=== PATIENT | male | born 1960 | race Hispanic/Latino ===

== ENCOUNTER 2018-06-07 11:30 | Observation (INO) | payer OTHER ==
[~2018-06-07] VITALS: Ht 167.6 cm; Wt 106.6 kg
[2018-06-07] MEDS ORDERED: ASPIRIN 81 MG CHEW TAB PO ONE (12:00)
[2018-06-07 12:27] LABS: BASOPHILS % 0.4 % (0.0-1.0); EOSINOPHILS # (AUTO) 0.1 (0.0-0.4); EOSINOPHILS % 1.5 % (0.0-6.0); HEMATOCRIT 45.1 % (38.2-49.6); HEMOGLOBIN 15.2 g/dL (14.0-18.0); LYMPHOCYTES # (AUTO) 1.9 (1.0-3.2); LYMPHOCYTES % 26.4 % (18.0-39.1); MEAN CORPUSCULAR HEMOGLOBIN 29.1 pg (28-32); MEAN CORPUSCULAR HGB CONC 33.7 g/dL (31-35); MEAN CORPUSCULAR VOLUME 86.2 fL (81-99); MONOCYTES # (AUTO) 0.5 (0.2-0.8); MONOCYTES % 6.6 % (4.4-11.3); NEUTROPHILS # (AUTO) 4.7 (2.1-6.9); NEUTROPHILS % 64.8 % (38.7-80.0); PLATELET COUNT 123 x10e3/uL (140-360); RED BLOOD COUNT 5.23 x10e6/uL (4.3-5.7); RED CELL DISTRIBUTION WIDTH 14.1 % (11.7-14.4)
[2018-06-07 12:44] LABS: ALANINE AMINOTRANSFERASE 41 IU/L (0-55); ALBUMIN 4.1 g/dL (3.5-5.0); ALBUMIN/GLOBULIN RATIO 1.6 (0.8-2.0); ALKALINE PHOSPHATASE 54 IU/L (40-150); ANION GAP 13.3 mmol/L (8-16); BLOOD UREA NITROGEN 12 mg/dL (7-26); BUN/CREATININE RATIO 16 (6-25); CALCIUM 9.6 mg/dL (8.4-10.2); CARBON DIOXIDE 27 mmol/L (22-29); CHLORIDE 101 mmol/L (98-107); CREATINE KINASE 85 IU/L (30-200); CREATININE, SERUM 0.77 mg/dL (0.72-1.25); EST GLOMERULAR FILTRATION RATE > 60 ML/MIN (60-); GLUCOSE 109 mg/dL (74-118); LIPASE 20 U/L (8-78); POTASSIUM 4.3 mmol/L (3.5-5.1); SODIUM 137 mmol/L (136-145)
[2018-06-07] MEDS ORDERED: ONDANSETRON HCL INJ 2 MG/ML VIAL IV PRN ×2 (12:45→13:15)
[2018-06-07] MEDS ORDERED: FAMOTIDINE 20 MG/2 ML VIAL IV ONE (12:45)
[2018-06-07] MEDS ORDERED: METOPROLOL TARTRATE INJ 1 MG/ML VIAL IV SCH (12:45)
[2018-06-07] MEDS ORDERED: NITROGLYCERIN 2% OINT 1 GM PKT TOP ONE (12:45)
--- NOTE | 2018-06-07 12:58 | Diagnostic Imaging Report ---
EXAM: XR CHEST 1 VIEW DATE: 06/07/2018 11:48 AM INDICATION: Irregular heartbeat COMPARISON: None FINDINGS: Lines and Tubes: None Heart and Mediastinum: Heart borderline enlarged, possibly due to portable technique. Lungs and Pleura: No significant pleural effusion, pneumothorax, or focal consolidation. Bones and Soft Tissues: No acute findings. IMPRESSION: 1. No acute cardiopulmonary findings. Signed by: Dr. Andrés Rizo MD on 06/07/2018 12:55 PM
[2018-06-07 13:08] LABS: INR 0.87; PROTHROMBIN TIME 12.7 seconds (11.9-14.5)
[2018-06-07 13:09] LABS: PARTIAL THROMBOPLASTIN TIME 27.9 seconds (23.8-35.5)
[2018-06-07] MEDS ORDERED: FAMOTIDINE 20 MG TAB PO SCH (13:15)
[2018-06-07] MEDS ORDERED: SODIUM CHLORIDE FLUSH 10 ML SYR INJ PRN (13:15)
[2018-06-07] MEDS ORDERED: HYDROMORPHONE 2MG/ML 2 MG/ML ML IV PRN ×2 (13:15→15:30)
[2018-06-07] MEDS: METOPROLOL TARTRATE 25 MG TAB PO SCH (13:24)
--- OUTSIDE RECORDS SUMMARY | 2018-06-07 14:23 | XMS REPORT ---
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 Allergies, Adverse Reactions, Alerts This patient has no known allergies or adverse reactions. Medications This patient has no known medications. Results Test Description Test Time Test Comments Text Results Atomic Results Result Comments CHEST SINGLE (PORTABLE) 2018-06-07 12:53:00 [place] [id number] Patient Name: SHERYL LAZO MR #: [id number] : 1960 Age/Sex: 57/M Req #: [id number] Adm Physician: Ordered by: MICHELLE BARTLETT RECHECKER Report #: [id number] Location: ER Room/Bed: Procedure: [id number] DX/CHEST SINGLE (PORTABLE) Exam Date: Exam Time: REPORT STATUS: Signed EXAM: XR CHEST 1 VIEW DATE: 06/07/2018 11:48 AM NATAN CATION: Irregular heartbeat COMPARISON: None FINDINGS: Lines and Tubes: None Heart and Mediastinum: Heart borderline enlarged, possibly due to portable technique. Lungs and Pleura: No significant pleural effusion, pneumothorax, or focal consolidation. Bones and Soft Tissues: No acute findings. IMPRESSION: 1. No acute cardiopulmonary findings. Signed by: Dr. Andrés Rizo MD on 06/07/2018 12:55 PM Dictated By: ANDRÉS RIZO MD 55 Transcribed By: KEYANNA on 06/07/181254 COPY TO: MICHELLE BARTLETT NP
[2018-06-07 14:59] LABS: CLARITY,URINE CLEAR (CLEAR); COLOR,URINE YELLOW (YELLOW); LEUKOCYTE ESTERASE ,URINE NEGATIVE (NEGATIVE); NITRITE,URINE NEGATIVE (NEGATIVE); PROTEIN,URINE DIPSTICK NEGATIVE (NEGATIVE)
[2018-06-07 15:00] LABS: BILIRUBIN,URINE NEGATIVE (NEGATIVE); KETONES,URINE NEGATIVE (NEGATIVE); URINE UROBILINOGEN 0.2 mg/dL (0.2 - 1)
[2018-06-07] MEDS ORDERED: ENALAPRILAT IV INJ 1.25 MG/ML VIAL IV PRN (15:15)
[2018-06-07] MEDS ORDERED: AMLODIPINE BESYLATE 5 MG TAB PO ONE (15:15)
[2018-06-07] MEDS ORDERED: HYDROMORPHONE 1MG/1ML INJ IV PRN (15:15)
[2018-06-07] MEDS ORDERED: ZOLPIDEM TARTRATE 5 MG TAB PO PRN (15:15)
[2018-06-07] MEDS ORDERED: ACETAMINOPHEN 325 MG TAB PO PRN (15:15)
[2018-06-07] MEDS ORDERED: DIPHENHYDRAMINE HCL 25 MG CAP PO PRN (15:15)
[2018-06-07] MEDS ORDERED: CLONIDINE HCL 0.2 MG TAB PO PRN (15:15)
[2018-06-07] MEDS: FAMOTIDINE 20 MG TAB PO SCH (17:12)
[2018-06-07] MEDS ORDERED: ENOXAPARIN SODIUM INJ 100 MG/ML SYR SC STA (17:21)
[2018-06-07] MEDS ORDERED: CLOPIDOGREL BISULFATE 75 MG TAB PO ONE (17:30)
[2018-06-07] MEDS ORDERED: ENOXAPARIN SODIUM INJ 100 MG/ML SYR SC NR (17:45)
[2018-06-07] MEDS ORDERED: NITROGLYCERIN 2% OINT 1 GM PKT TOP SCH (18:00)
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
[2018-06-07 20:40] LABS: CREATINE KINASE 68 IU/L (30-200)
[2018-06-07] MEDS ORDERED: ALEVE220 M1 PO (20:47)
[2018-06-07] MEDS ORDERED: ACETAMINOPHEN325 M1 PO (20:47)
[2018-06-07] MEDS ORDERED: FISH OIL 1,0001 EAC3 PO (20:47)
[2018-06-07] MEDS: SIMVASTATIN 40 MG TAB PO SCH (21:25)
[2018-06-08] MEDS: METOPROLOL TARTRATE 25 MG TAB PO SCH ×3 (01:36→20:30)
[2018-06-08 05:12] LABS: CHOL/HDL RATIO 3.9 (3.9-4.7)
[2018-06-08 05:13] LABS: CALCIUM 9.3 mg/dL (8.4-10.2); MAGNESIUM 2.3 MG/DL (1.3-2.1); PHOSPHORUS 3.4 MG/DL (2.3-4.7)
[2018-06-08 05:51] LABS: CREATINE KINASE MB 1.1 ng/mL (0-5.0)
[2018-06-08] MEDS: FAMOTIDINE 20 MG TAB PO SCH ×2 (07:45→17:17)
[2018-06-08] MEDS: ASPIRIN 325 MG TAB EC PO SCH (09:20)
[2018-06-08] MEDS ORDERED: REGADENOSON 0.4 MG/5 ML SYR IV ONE (10:27)
--- NOTE | 2018-06-08 12:57 | Cardiology Report ---
DATE OF STUDY: June 08, 2018 TITLE OF REPORT: LEXISCAN NUCLEAR STRESS TEST INDICATION FOR STUDY: Equivalent angina symptoms, AFib, and inability to exercise. TECHNICAL DETAIL: After risks, benefits, pros and cons of today's Lexiscan nuclear stress test were explained to the patient, patient agreed to proceed. He was brought down to the nuclear lab where he received a 10.6 mCi dose of technetium-99 tetrofosmin intravenously and after 40 minutes, patient was taken to the SPECT camera for resting myocardial perfusion imaging. Afterwards, he was brought to the stress lab where 12-lead EKG monitoring and blood pressure monitoring were obtained. He received a dose of Lexiscan 0.4 mg intravenously followed by a 33 mCi dose of technetium-99 tetrofosmin intravenously. Resting heart rate went from a baseline of 80 beats per minute to a maximum of 96 beats per minute, blood pressure went from a baseline of 130/96 down to 108/57, which is appropriate hemodynamic response. There was no ischemic EKG changes and no symptoms with Lexiscan infusion. Underlying EKG revealed atrial fibrillation, delayed RS transition, non specific ST-T wave changes. Afterwards, patient was then taken to the SPECT camera for stress myocardial perfusion imaging. FINDINGS 1. Resting myocardial perfusion imaging reveals normal trace for uptake. 2. Stress myocardial perfusion imaging reveals a small area of decreased uptake in the base of the mid anterior wall that was not present on resting myocardial perfusion imaging. 3. The following gated measurements were obtained: End-diastolic volume was 98 mL, end-systolic volume is 60 mL, and calculated left ventricular ejection fraction is 39% with moderate global hypokinesis. CONCLUSIONS 1. Abnormal myocardial perfusion imaging study revealing a small reversible mid to baseline anterior wall defect could be suggestive of ischemia. 2. Abnormal left ventricular function with moderate global hypokinesis with calculated ejection fraction of 39%. 3. Overall findings of the studies compatible with an intermediate risk of stress test. Job#: [id number] VAS
[2018-06-08] MEDS: LISINOPRIL 10 MG TAB PO SCH (13:00)
[2018-06-08] MEDS: HYDROCHLOROTHIAZIDE 25 MG TAB PO SCH (13:00)
--- NOTE | 2018-06-08 13:51 | History and Physical ---
DATE OF ENCOUNTER: June 08, 2018. PRIMARY CARE SYSTEM: [facility]. This is coverage for Dr. Luis Dave. HISTORY: Mr. Hauser is a pleasant 57-year-old gentleman with shortness of breath. Patient has associated chest pain, onset x1 day. His blood pressure is 180 systolic. Heart rate was 130, thought to be atrial fibrillation with rapid ventricular rate. His saturation was at 97% to 100% on room air. When he came to the emergency room, his heart rate slowed down rapidly, and it has been controlled since. BNP was 123. Patient with additional cardiac enzymes coming back negative so far. It was elected to admit him for observation and cardiac workup and for safety. PAST MEDICAL HISTORY: Hypertension. Right knee surgery. MEDICATIONS: Medication list reviewed per electronic record. For the most part, he was not taking medicines. ALLERGIES: NO KNOWN DRUG ALLERGIES. SOCIAL HISTORY: He is . He smoked from age 13 to 57, one pack per day. No heavy alcohol. He smoked marijuana for greater than 30 years, used cocaine for 3 years on a daily basis but quit about 15 years ago. 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 FAMILY HISTORY: Noncontributory. REVIEW OF SYSTEMS GENERAL: No weight changes. OPHTHALMOLOGIC: No double vision. ENT: No dry mouth. ENDOCRINE: No thyroid disease. PULMONARY: No asthma. CARDIAC: No previous heart workup. GI: No constipation. : No blood in urine. MUSCULOSKELETAL: Moderate arthritis. NEUROLOGIC: No seizures. DERMATOLOGIC: No rash. LABS: Potassium 4.3, BUN 12, creatinine 0.8. White count 7, hematocrit 45, platelets 123. Labs reviewed otherwise as per electronic record. Bicarbonate 27, creatinine 0.8. Hematocrit 45. IMPRESSION 1. Angina, suspected. 2. Atrial fibrillation. 3. Hypertension with urgency versus emergency. 4. Obesity. 5. Chronic smoker. 6. History of other substance use. PLAN: At this time, we wish to continue current treatment. Stress test to be done today. Follow up echocardiogram. Smoking cessation highly recommended. We will follow up with further recommendations based on treatment plan. Thank you very much to Audrey for allowing me and Dr. Dvae for this chance to participate in the care of Mr. Hauser. Do not hesitate to contact us if we could help in any way. Job#: [id number] LPA
[2018-06-08 14:42] VITALS: BP 122/92
[2018-06-08 15:26] VITALS: BP 122/92
[2018-06-08 20:05] VITALS: BP 122/93
[2018-06-08] MEDS: SIMVASTATIN 40 MG TAB PO SCH (20:05)
[2018-06-08] MEDS: SODIUM CHLORIDE 0.9% 1000ML 1,000 ML IV SCH (20:30)
[2018-06-09] VITALS (13 sets, daily range): BP systolic 68–145; BP diastolic 45–93
[2018-06-09 05:56] LABS: BASOPHILS % 0.3 % (0.0-1.0); EOSINOPHILS # (AUTO) 0.1 (0.0-0.4); EOSINOPHILS % 1.6 % (0.0-6.0); HEMATOCRIT 46.6 % (38.2-49.6); HEMOGLOBIN 15.9 g/dL (14.0-18.0); LYMPHOCYTES % 32.6 % (18.0-39.1); MEAN CORPUSCULAR HEMOGLOBIN 29.5 pg (28-32); MEAN CORPUSCULAR HGB CONC 34.1 g/dL (31-35); MEAN CORPUSCULAR VOLUME 86.5 fL (81-99); MONOCYTES # (AUTO) 0.5 (0.2-0.8); MONOCYTES % 8.2 % (4.4-11.3); NEUTROPHILS # (AUTO) 3.5 (2.1-6.9); NEUTROPHILS % 56.8 % (38.7-80.0); PLATELET COUNT 134 x10e3/uL (140-360); RED BLOOD COUNT 5.39 x10e6/uL (4.3-5.7); RED CELL DISTRIBUTION WIDTH 14.5 % (11.7-14.4)
[2018-06-09 06:26] LABS: ALANINE AMINOTRANSFERASE 35 IU/L (0-55); ALBUMIN 3.8 g/dL (3.5-5.0); ALBUMIN/GLOBULIN RATIO 1.1 (0.8-2.0); ALKALINE PHOSPHATASE 55 IU/L (40-150); BLOOD UREA NITROGEN 13 mg/dL (7-26); BUN/CREATININE RATIO 15 (6-25); CALCIUM 9.6 mg/dL (8.4-10.2); CARBON DIOXIDE 26 mmol/L (22-29); CHLORIDE 103 mmol/L (98-107); CREATININE, SERUM 0.85 mg/dL (0.72-1.25); EST GLOMERULAR FILTRATION RATE > 60 ML/MIN (60-); GLUCOSE 109 mg/dL (74-118); SODIUM 138 mmol/L (136-145)
[2018-06-09] MEDS: FAMOTIDINE 20 MG TAB PO SCH ×2 (07:30→17:28)
[2018-06-09] MEDS: ASPIRIN 325 MG TAB EC PO SCH (08:54)
[2018-06-09] MEDS: HYDROCHLOROTHIAZIDE 25 MG TAB PO SCH (08:54)
[2018-06-09] MEDS: LISINOPRIL 10 MG TAB PO SCH (09:00)
[2018-06-09] MEDS ORDERED: IOPAMIDOL 370 MG/ML 200 ML INFUS..BTL INJ ONE (10:37)
[2018-06-09] MEDS ORDERED: HEPARIN SOD/SOD CHLORIDE 2,000 ML ONE (10:37)
[2018-06-09] MEDS ORDERED: LIDOCAINE HCL 1% LOCAL INJ 20 ML VIAL ONE (10:37)
[2018-06-09] MEDS ORDERED: MIDAZOLAM HCL 2 MG/2 ML VIAL ONE (10:45)
[2018-06-09] MEDS ORDERED: FENTANYL CITRATE/PF 100MCG/2 ML INJ ONE (10:45)
[2018-06-09] MEDS ORDERED: HYDRALAZINE HCL 20 MG/ML VIAL ONE (11:31)
[2018-06-09] MEDS ORDERED: METOPROLOL TARTRATE INJ 1 MG/ML VIAL ONE (11:36)
[2018-06-09] MEDS ORDERED: ATROPINE SULFATE 0.1 MG/ML 10ML SYR ONE (11:50)
[2018-06-09] MEDS ORDERED: SODIUM CHLORIDE 0.9% 1000ML 1,000 ML ONE ×3 (11:51→13:35)
--- NOTE | 2018-06-09 15:09 | Operative Report ---
DATE OF PROCEDURE: June 09, 2018 TITLE OF THE PROCEDURE: Left cardiac catheterization. INDICATIONS: Severe hypertension, atrial fibrillation, angina, left ventricular dysfunction, abnormal nuclear with ejection fraction in the 40s. TECHNICAL DETAILS: After the usual sterile preparation and draping procedure, intravenous Versed and fentanyl given for sedation, local Xylocaine for anesthesia. A 4-Estonian sheath established in place. Kathryn left 4 and 3DRC catheter to engage the coronary. Pigtail for left ventriculogram and hemodynamic measurement. At the end of the procedure, sheath was removed. Hemostasis achieved manually. No complication. No blood loss. RESULTS A. Coronary angiogram. 1. Left main free of disease. 2. LAD, minimal plaquing. 3. Circumflex giving to a large obtuse marginal. 4. Circumflex coronary artery, minimal plaquing. B. Hemodynamics: Aorta pressure 150/100. LV pressure 150/26. C. Left ventriculogram: The right anterior oblique view showed normal size ventricle, ejection fraction of 40% to 45%. IMPRESSION 1. Mild coronary artery disease. 2. Left ventricular ejection fraction of 40% to 45%. COMPLICATIONS: None. BLOOD LOSS: None. Job#: [id number] TREASURE
[2018-06-09] MEDS: METOPROLOL TARTRATE 25 MG TAB PO SCH (17:28)
[2018-06-09] MEDS: SIMVASTATIN 40 MG TAB PO SCH (20:40)
[2018-06-10 01:30] VITALS: BP 119/82
[2018-06-10] MEDS: METOPROLOL TARTRATE 25 MG TAB PO SCH ×2 (01:30→15:44)
[2018-06-10] MEDS: SODIUM CHLORIDE 0.9% 1000ML 1,000 ML IV SCH (02:13)
--- NOTE | 2018-06-10 04:25 | Progress Note ---
DATE: June 09, 2018 INTERNAL MEDICINE PROGRESS NOTE This is coverage for Dr. Dave. SUBJECTIVE: Mr. Hauser was seen and examined at bedside. Patient proceeded to have left heart catheterization today. He had depressed ejection fraction at 40%-45%. He had blockages up to 40%. He was recommended for medical management. Atrial fibrillation remains an active issue. REVIEW OF SYSTEMS: No headaches and no stomach pain. OBJECTIVE VITAL SIGNS: Afebrile, vital signs noted per electronic record. GENERAL: In no acute distress, alert and calm. HEENT: Normocephalic, atraumatic. NECK: Supple. Throat midline. LUNGS: Bilateral air entry, clear. CARDIOVASCULAR: S1 and S2. No murmurs, rubs, or gallops. ABDOMEN: Soft and nontender. EXTREMITIES: No clubbing, no cyanosis, and there is no edema. INTEGUMENT: No rash and no purpura. LABS: Potassium 4.0 and 0.9 creatinine. White count 6 and 134 platelets. IMPRESSION AND PLAN 1. Atrial fibrillation, with rapid rate, now controlled. 2. Cardiomyopathy. 3. Mild coronary artery disease. 4. Transient hypotension today. 5. Hyperlipidemia. Follow up to make sure blood pressure does not drop too much. Bedrest and then walk him around. We will discuss anticoagulation option after his femoral site is healed. Better. Consideration would be novel anticoagulant versus warfarin. He can possibly go home today with either of those options as long as he can follow and get warfarin loading in clinic, if that is the medicine he chooses. Continue statin medications and aspirin. Job#: [id number] MICKEY
[2018-06-10 04:45] VITALS: BP 118/81
[2018-06-10 07:31] VITALS: BP 133/96
[2018-06-10] MEDS: FAMOTIDINE 20 MG TAB PO SCH (08:05)
[2018-06-10] MEDS: LISINOPRIL 10 MG TAB PO SCH (08:12)
[2018-06-10] MEDS: HYDROCHLOROTHIAZIDE 25 MG TAB PO SCH (08:12)
[2018-06-10] MEDS: ASPIRIN 325 MG TAB EC PO SCH (08:15)
[2018-06-10 10:55] VITALS: BP 133/96
[2018-06-10 11:24] VITALS: BP 122/98
[2018-06-10] MEDS ORDERED: XARELTO20 MG PO (15:06)
[2018-06-10] MEDS ORDERED: METOPROLOL TART50 MG PO (15:08)
[2018-06-10] MEDS ORDERED: LISINOPRIL-HCT1 EAC2 PO (15:08)
[2018-06-10 15:56] VITALS: BP 134/76
== END 2018-06-10 15:15 | disposition home or self-care (01) ==
LOC: ER 11:30 → ERHOLD 13:12 → IMCU 06-08 14:32 → ERHOLD 06-08 14:33 → IMCU 06-08 14:42
PROVIDERS: ADMIT Internal Medicine; ATTEND Internal Medicine
DX: I48.91 Unspecified atrial fibrillation (principal); I25.119 Atherosclerotic heart disease of native coronary artery with unspecified angina pectoris; I16.0 Hypertensive urgency; Z87.891 Personal history of nicotine dependence; E66.9 Obesity, unspecified; Z91.19 Patient's noncompliance with other medical treatment and regimen; E78.5 Hyperlipidemia, unspecified; Z68.37 Body mass index [BMI] 37.0-37.9, adult
CPT/HCPCS: 36415 ×3; 71045; 78452; 80053 ×2; 80061; 81001; 82310; 82550 ×2; 82553 ×2; 82948; 83690; 83735; 83880; 84100; 84443; 84484 ×2; 85025 ×2; 85379; 85610; 85730; 87086; 93005; 93017; 93306; 93458; 99284; A9502; C1766; G0378 ×4; J0360; J1170; J1650; J2001; J2250; J2785; J7030 ×3; Q9967; J2405